=== PATIENT | male | born 1995 | race Caucasian/White ===

== ENCOUNTER → 2021-09-04 | Outpatient (CLI) | payer OTHER ==
--- NOTE | 2021-09-04 08:03 | XR ---
EXAMINATION TYPE: XR foot complete LT DATE OF EXAM: 09/04/2021 CLINICAL HISTORY: Pain TECHNIQUE: Frontal, lateral, and oblique images of the left foot are obtained. COMPARISON: None FINDINGS: There is no acute fracture/dislocation evident in the left foot. The joint spaces in the left foot appear within normal limits. The overlying soft tissue appears unremarkable. IMPRESSION: There is no acute fracture or dislocation in the left foot.
== END | disposition home or self-care (01) ==
LOC: RADXRMAIN 06:21
PROVIDERS: ATTEND Family Medicine
DX: M79.672 Pain in left foot (principal)

== ENCOUNTER → 2023-01-04 | Outpatient (CLI) | payer OTHER ==
--- NOTE | 2023-01-04 10:30 | XR ---
EXAMINATION TYPE: XR knee complete LT DATE OF EXAM: 01/04/2023 10:21 AM INDICATION: Patient age:Male; 27 years old; Reason for study: S80.02XA Contusion left knee; PHH. COMPARISON: None. TECHNIQUE: The Left knee(s) was examined in frontal, lateral, and oblique projections FINDINGS: No acute fracture or dislocation. Small suprapatellar joint effusion. Mild spurring along the superior aspect of the patella. No significant soft tissue edema. IMPRESSION: 1. No acute osseous pathology. 2. Small suprapatellar joint effusion.
== END | disposition home or self-care (01) ==
LOC: RADXRMAIN 09:44
PROVIDERS: ATTEND Emergency Medicine
DX: S80.02XA Contusion of left knee, initial encounter (principal); M25.462 Effusion, left knee